=== PATIENT | male | born 1990 | race Caucasian/White ===

== ENCOUNTER 2023-01-01 10:01 | Outpatient (CLI) | payer OTHER, SELFPAY ==
--- NOTE | ~2023-01-01 | CT_ITS ---
EXAMINATION: CT LE RT wo con DATE: 01/01/2023 10:30 INDICATION: Displaced fracture of the anterior process of the calcaneus TECHNIQUE: High resolution computed tomography (CT) of the right ankle and hindfoot was performed wit hout intravenous contrast. Additional sagittal and coronal reconstructions were performed. Automated exposure control and iterative reconstruction technique were employed. The dose-length product was 22 9.90 mGy-cm. COMPARISON: None FINDINGS: Comminuted intra-articular fracture of the anterior calcaneus with impaction of a large portion of th e central aspect of the articular surface resulting in up to 2-3 mm cortical step-off along the artic ular surface. Additional minimally displaced intra-articular fractures at the plantar aspect of the b ase of the second and third metatarsals. Tiny flake-like chip versus avulsion fracture fragment along the dorsal rim of the distal calcaneus juxtaposed to its articulation with the base of the fourth an d fifth metatarsals. No other fractures identified. Joint spaces appear relatively preserved. There i s soft tissue swelling of the dorsolateral aspect of the midfoot and proximal forefoot. No ankle join t effusion. IMPRESSION: 1. Mildly impacted and comminuted intra-articular fracture of the anterior calcaneus involving the ar ticulation at the calcaneocuboid joint. 2. Minimally displaced intra-articular fractures at the plantar base of the second and third metatars als. 3. Tiny flake-like avulsion chip versus avulsion fracture along the dorsal rim of the distal cuboid. Reviewed, dictated and finalized at location A. IMPRESSION: 1. Mildly impacted and comminuted intra-articular fracture of the anterior calc aneus involving the articulation at the calcaneocuboid joint. 2. Minimally displaced intra-articular fractures at the plantar base of the sec ond and third metatarsals. 3. Tiny flake-like avulsion chip versus avulsion fracture along the dorsal rim of the distal cuboid.
== END 2023-01-01 10:02 ==
LOC: GOSHIMG 10:03
PROVIDERS: PCP Podiatrist Foot & Ankle Surgery; Visit Provider Podiatrist Foot & Ankle Surgery
DX: S92.021A Displaced fracture of anterior process of right calcaneus, initial encounter for closed fracture (principal); X58.XXXA Exposure to other specified factors, initial encounter
CPT/HCPCS: 73700